=== PATIENT | female | born 2000 | race Caucasian/White ===

== ENCOUNTER → 2023-06-15 | Outpatient (CLI) | payer OTHER, SELFPAY ==
--- OUTSIDE RECORDS SUMMARY | 2023-06-16 00:02 | XMS RPT_ITS | CCD ---
Author Name Unknown Address [address] [place] [address] Organization [facility] Care Team Providers Care Chronic Care Nurse Name Role Phone SVETLANA ROSS Admitting Unavailable SVETLANA ROSS Attending Unavailable SVETLANA ROSS Primary Care Unavailable SUKUMAR HAMMOND Unavailable PROVIDER, UNKNOWN Consulting Unavailable PROVIDER, UNKNOWN Consulting Unavailable PROVIDER, UNKNOWN Consulting Unavailable Manish HOUSER, Sukumar Mares Unavailable Knutson CLEANER ASSISTANT, Christy Unavailable Unavailabl e Da CLEANER ASSISTANT, Dilcia Unavailable Day CLEANER ASSISTANT, Azul Unavailable Unavailable BRASS RECLAIMER-C, Pedro Jones Unavailable Tisha CLEANER ASSISTANT, Anna K Unavailable Unavai isabel Sharpe PA-C, Tracy Couch Unavailable Agnes CLEANER ASSISTANT, Sabina Phelps Unavailable Unavailab lorenzo Gonzalez LPN, Rebekah Unavailable Unavailabl e Unavailable Unavailable Medications Current Medications Medication Drug Class(es) Dates Sig (Normalized) Sig (Original) [id number] 200 actuat albuterol 0.09 mg/actuat metered dose inhaler (1 source) beta2-Adrenergic Agonist Start: 12-26-2020 ProAir HFA 108 (90 Base) MCG/ACT Inhalation Aerosol Solution ; 2 (two) Puff 30 minutes prior to exercise and as needed for shortness of breath for 0 days Quantity: 1 {Each} Refills: 1 Ordered: 26-Dec-2020 MD Sukumar Hammond Start: 26-Dec-2020 Comments: Medication taken as needed. Problems Active Problems Problem Classification Problem Date Documented Date Episodic/Chronic Allergic reactions (3 sources) Allergy, unspecified, initial encounter; Translations: [Allergy, unspecified, initial encounter] Onset: 06-22-2019 Episodic Asthma (2 sources) Exercise-induced asthma; Translations: [Exercise induced bronchospasm] 05-25-2023 Chronic Contraceptive and procreative management (2 sources) Oral contraception; Translations: [Encounter for surveillance of contraceptive pills] 05-25-2023 Episodic Immunizations and screening for infectious disease (3 sources) Needs influenza immunization; Translations: [Encounter for immunization] 01-22-2015 Episodic Menstrual disorders (2 sources) Dysmenorrhea; Translations: [Dysmenorrhea, unspecified] 05-25-2023 Chronic Other injuries and conditions due to external causes (1 source) Injury of left ankle; Translations: [Unspecified injury of left ankle, initial encounter] 12-21-2015 Episodic Other lower respiratory disease (2 sources) Dyspnea on exertion; Translations: [Other forms of dyspnea] 05-25-2023 Episodic Other upper respiratory disease (2 sources) Sinusitis; Translations: [Allergic rhinitis, unspecified] 05-25-2023 Chronic Other upper respiratory infections (2 sources) Pharyngitis; Translations: [Acute pharyngitis, unspecified] 05-25-2023 Episodic Residual codes; unclassified (2 sources) Finding of body mass index; Translations: [Body mass index (BMI) pediatric, 5th percentile to less than 85th percentile for age] 05-25-2023 Episodic Residual codes; unclassified (1 source) Non-smoker; Translations: [Other specified health status] 05-25-2023 Episodic Past or Other Problems Problem Classification Problem Date Documented Da te Episodic/Chronic Unclassified (1 source) Cold Symptoms - Symptoms include nasal congestion and sore throat (Swollen tonsils causing sore throat.). The onset was gradual 1 week(s) ago. The symptoms occur constantly. The patient describes this as moderate in severity and worsening. The patient is not currently being treated for this problem. Note for Upper respiratory infection : No size changer the past week.Was seen at urgent are on 05/20/2023 - strep testing was negative. No fever. Sore throat isn't severe - drinking hot liquids. 05-25-2023 Unclassified (1 source) Well child visit #4 - 13 to 17 years - The child is here for a 16 to 17 year well-child visit. The primary caregiver is the mother and father. Family status: coping adequately. There are no behavioral problems. The patient is eating a variety of foods. The child sleeps 8 hours at night. Menstruation: regular periods and no premenstrual symptoms (since using ocp). The child performs well in school (online) and participates in extracurricular activities (sports and two jobs). 07-12-2020 Unclassified (1 source) Cold Symptoms - Symptoms include nasal congestion, scratchy throat, dry cough, chills and general malaise. The onset was sudden 24 hour(s) ago. The patient describes this as moderate in severity and worsening. Current treatment includes non-prescription cold medication. Risk factors do not include smoking. Note for Upper respiratory infection : -She had to call off work and soccer practice and needs excuses. 11-19-2018 Unclassified (1 source) Well child visit #4 - 13 to 17 years - The child is here for a 16 to 17 year well-child visit. The primary caregiver is the mother and father. Family status: coping adequately. There are no behavioral problems. The patient has a balanced diet. There are no eating difficulties. Meals/day: 3. The child sleeps 7 hours at night. Menstruation: regular periods, premenstrual symptoms and able to maintain daily schedule. The child performs well in school. 10-20-2018 Unclassified (1 source) Well child visit #4 - 13 to 17 years - The child is here for a 15 to 16 year well-child visit. The primary caregiver is the mother and father. Family status: coping adequately. There are no behavioral problems. The patient has a balanced diet. There are no eating difficulties. Meals/day: 3. The child sleeps 6 hours at night. Menstruation: regular periods. The child performs well in school, interacts well with peers and participates in extracurricular activities. Safety measures taken include appropriate use of safety belts, home smoke detectors, avoiding exposure to passive smoke, counseling regarding substance abuse and counseling regarding safe sex/HIV. Note for Well child visit #4 - 13 to 17 years : Plays soccer.Only concern they have is when she is running a lot (long distances) she gets wheezy and feels like she can't get her whole breath; improves when she stops running; no associated chest pain but does feel lightheaded at times with it. Has noticed more this year. 11-04-2017 Unclassified (1 source) Ankle pain - The onset of the ankle pain has been sudden and has been occurring in a persistent pattern for 17 hours (happened last night about 6:15pm while playing soccer.). The course has been gradually improving. The pain is characterized as a moderate dull aching (will sometimes have a sharp pain that will radiate up the leg. ). The pain is in the left ankle and is described as being located in the lateral ankle. The pain is aggravated by any movement (weight bearing) and changes in direction. Relieving factors include rest and ice. There have been no previous diagnostic tests. Previous medication use has included Ibuprofen. Note for Ankle pain : Injury was lateral roll, no poping or twisting occured. 12-21-2015 Results Test Name Value Interpretation Reference Range Facil ity Vital Signs Date Time Vital Sign Value Performing Clinician Faci lity 05-25-2023 08:14-0500 Body height 165.1 cm Christy Knutson LPN [facility], [facility], [facility]. 05-25-2023 08:14-0500 Body mass index (BMI) [Ratio] 26.13 kg/m2 Christy Knutson [facility], [facility].; [facility], [facility]. 05-25-2023 08:14-0500 Body surface area Derived from formula 1.78 m2 Christy Knutson CLEANER ASSISTANT [facility], [facility].; [facility] 05-25-2023 08:14-0500 Body temperature 97.5 [degF] Christy Knutson [facility], [facility].; [facility] Encounters Encounter Date Encounter Type Care Provider Facility Start: 05-25-2023 End: 05-25-2023 Office outpatient visit 15 minutes Sukumar Hammond MD Work Phone: [facility], [facility]. Start: 07-12-2020 End: 07-12-2020 Patient encounter procedure Sukumar Hammond MD Work Phone: [facility], [facility]. Start: 07-12-2020 End: 07-12-2020 Patient encounter status Dilcia Roberson CABRERA Work Phone: [facility], [facility].; [facility], [facility]. Start: 06-22-2019 End: 06-23-2019 Patient encounter procedure SVETLANA ROSS [facility] Start: 11-19-2018 End: 11-19-2018 Patient encounter procedure Sukumar Hammond MD Work Phone: [facility] Start: 10-20-2018 End: 10-20-2018 Patient encounter procedure Sukumar Hammond MD Work Phone: [facility] Start: 10-20-2018 End: 10-20-2018 Patient encounter status Sukumar Hammond MD Work Phone: [facility]; [employer]. Start: 12-25-2017 End: 12-27-2017 Medication Sukumar Hammond MD Work Phone: [facility] Start: 11-04-2017 End: 11-04-2017 Patient encounter status Rebekah Gonzalez LPN [facility]; [employer]. Start: 11-04-2017 End: 11-04-2017 Periodic preventive med est patient 12-17yrs Sukumar Hammond MD Work Phone: [facility] Start: 12-21-2015 End: 12-21-2015 Patient encounter procedure Sukumar Hammond MD Work Phone: [facility] Start: 01-22-2015 End: 01-22-2015 Nursing evaluation of patient and report Sukumar Hammond MD Work Phone: [facility] Start: 11-30-2014 End: 11-30-2014 Orders Sukumar Hammond MD Work Phone: [facility] Start: 11-30-2014 End: 11-30-2014 Routine infant or child health check Sukumar Hammond MD Work Phone: [facility]; [facility] Start: 02-23-2014 End: 02-23-2014 Nursing evaluation of patient and report Sukumar Hammond MD Work Phone: [facility] Start: 03-27-2011 End: 03-27-2011 Nursing evaluation of patient and report Sukumar Hammond MD Work Phone: [facility] Procedures Date Procedure Procedure Detail Performing Clinician Start: 07-12-2020 End: 07-12-2020 Body mass index documented Sukumar kilgore MD Work Phone: Start: 11-04-2017 End: 11-04-2017 Screening test visual acuity quantitative bilat Tracy Sharpe PA-C Work Phone: Start: 12-21-2015 End: 12-21-2015 No Known Past Surgical History Azul Day CLEANER ASSISTANT Start: 12-21-2015 End: 12-21-2015 Radex ankle complete minimum 3 views Pedro ALCAZAR Work Phone: Immunizations Immunization Date Immunization Notes Care Provider Libby tomas 10-20-2018 Meningococcal, MCV4, unspecified conjugate formulation(groups A, C, Y and W-135) Sukumar Hammond MD Work Phone: [facility]; [facility] 10-20-2018 Counseled parent on risks/benefits of vaccines (10828) Sukumar Hammond MD Work Phone: [facility]; [facility] 10-20-2018 Human Papillomavirus 9-valent vaccine Sukumar Hammond MD Work Phone: [facility]; [facility] Payers Date Payer Category Payer Unknown [id number] Unknown [id number] Unknown [employer] Social History Date Type Detail Facility Parents Parents [employer]; [employer] Female [employer]; [facility] Work Phone: Tobacco smoking consumption unknown [facility]; [facility] Work Phone: Summary Purpose Family History No Family History Records FoundNo Family History Records FoundNo Family History Records Found Advance Directives No Advanced Directives Records FoundNo Advanced Directives Records FoundNo Advanced Directives Records Found Additional Source Comments INFORMATION SOURCE (unrecogn ized section and content) DATE CREATED AUTHOR AUTHOR'S ORGANIZ ATION 06/29/2019 [facility] DATE CREATED AUTHOR AUTHOR'S ORGANIZ ATION 01/22/2023 [facility] FOR RECORDS PERTAINING TO PATIENTS WHO ARE OR HAVE BEEN ENROLLED IN A CHEMICAL DEPENDENCY/SUBSTANCEABUSE PROGRAM, SOME INFORMATION MAY BE OMITTED. This clinical summary was aggregated from multiple sources. Caution should be exercised in using it in the provision of clinical care. This summary normalizes information from multiple sources, and as a consequence, information in this document may materially change the coding, format and clinical context of patient data. In addition, data may be omitted in some cases. CLINICAL DECISIONS SHOULD BE BASED ON THE PRIMARY CLINICAL RECORDS. [employer] [facility] provides no warranty or guarantee of the accuracy or completeness of information in this document.
== END | disposition home or self-care (01) ==
PROVIDERS: PCP Family Medicine; Referring Provider Otolaryngology; Visit Provider Otolaryngology
DX: J32.8 Other chronic sinusitis (principal)
CPT/HCPCS: 87070; 87205